=== PATIENT | female | born 1945 | race Caucasian/White ===

== ENCOUNTER 2017-11-27 17:59 | Inpatient (IN) | payer MEDICARE, MEDICAID ==
[~2017-11-27] VITALS: Ht 154.9 cm; Wt 52.2 kg
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
[2017-11-27 18:46] LABS: BASOPHILS # (AUTO) 0.1 /CMM (0.0-0.2); BASOPHILS % (AUTO) 1.2 % (0.0-2.0); EOSINOPHILS % (AUTO) 3.2 % (0.0-6.0); HEMATOCRIT 35 % (33-45); HEMOGLOBIN 11.9 g/dL (11.5-14.8); LYMPHOCYTES # (AUTO) 1.7 /CMM (0.8-4.8); LYMPHOCYTES % (AUTO) 33.7 % (20.0-44.0); MEAN CORPUSCULAR HEMOGLOBIN 30 PG (26.0-33.0); MEAN CORPUSCULAR HGB CONC 34 g/dl (31.0-36.0); MEAN CORPUSCULAR VOLUME 88 fL (82-100); MONOCYTES # (AUTO) 0.5 /CMM (0.1-1.30); MONOCYTES % (AUTO) 10.1 % (2.0-12.0); NEUTROPHILS # (AUTO) 2.7 /CMM (1.8-8.9); NEUTROPHILS % (AUTO) 51.8 % (43.0-81.0); PLATELET COUNT (AUTO) 236 /CMM (150-450); RDW COEFFICIENT OF VARIATION 14.3 (11.5-15.0); RED BLOOD CELL COUNT(AUTO) 4.02 MIL/uL (4.0-5.2); WHITE BLOOD COUNT (AUTO) 5.2 K/uL (4.3-11.0)
[2017-11-27 18:56] LABS: CALCIUM, SERUM 8.9 mg/dL (8.5-10.1); CARBON DIOXIDE 33 mmol/L (21-32); CHLORIDE 100 mmol/L (98-107); CREATININE 0.9 mg/dL (0.6-1.3); GLUCOSE 89 mg/dL (74-106); POTASSIUM 4.3 mmol/L (3.5-5.1); SODIUM SERUM 133 mmol/L (136-145); UREA NITROGEN, BLOOD 13 mg/dL (7-18)
[2017-11-27 19:02] LABS: ALANINE AMINOTRANSFERASE 64 U/L (12-78); ALBUMIN 3.4 g/dL (3.4-5.0); ALCOHOL, BLOOD < 3 mg/dL (0-0); ALKALINE PHOSPHATASE 47 U/L (46-116); ASPARTATE AMINOTRANSFERASE 45 U/L (15-37); BILIRUBIN,DIRECT 0.1 mg/dL (0.0-0.2); BILIRUBIN,TOTAL 0.4 mg/dL (0.2-1.0); TOTAL PROTEIN, SERUM 6.9 g/dL (6.4-8.2)
[2017-11-27 19:14] LABS: ACETAMINOPHEN 0 ug/ml (10-30); SALICYLATE 0.6 mg/dL (2.8-20.0)
--- NOTE | 2017-11-27 19:20 | NUR ---
Report given to RUSSELL Smith for jack.
[2017-11-27 19:30] LABS: APPEARANCE,URINE Slightly Cloudy (CLEAR); BILIRUBIN,URINE SMALL (NEGATIVE); BLOOD, URINE Negative Ery/uL (NEGATIVE); COLOR,URINE Yellow (YELLOW); KETONES,URINE Trace (NEGATIVE); LEUKOCYTE ESTERASE ,URINE Moderate (NEGATIVE); NITRITE, URINE Positive (NEGATIVE); PH,URINE 6.5 (5.0-8.0); PROTEIN,URINE Trace mg/dl (NEGATIVE); UGLUCOSE Negative (NEGATIVE)
[2017-11-27 19:37] LABS: BACTERIA,URINE Many /HPF (None Seen); RBC,URINE 0-2 /HPF (0-2); SQUAMOUS EPITHELIAL CELL,UR Few /HPF (None Seen); WBC,URINE 51-80 /HPF (0-3)
[2017-11-27 19:38] LABS: MUCUS,URINE Few /LPF (None Seen); URINE AMORPHOUS URATE Few /HPF (None Seen)
--- NOTE | 2017-11-27 20:04 | NUR ---
PATIENT ASSIGNED GPS [id number]
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
[2017-11-27] MEDS ORDERED: MAGNESIUM HYDROXIDE 30 ML UDC PO PRN (21:30)
[2017-11-27] MEDS ORDERED: MAG HYDROX/AL HYDROX/SIMETH 30 ML UDC PO PRN (21:30)
[2017-11-27] MEDS ORDERED: DIVA-76 PO (21:38)
[2017-11-27] MEDS ORDERED: [UNRECOGNIZED DRUG - OTHER] (21:38)
[2017-11-27] MEDS ORDERED: PRAV20TA PO (21:38)
[2017-11-27] MEDS ORDERED: DIVA125C5 PO (21:38)
[2017-11-27] MEDS ORDERED: OMEP40CA37 PO (21:38)
[2017-11-27] MEDS ORDERED: FENO134C PO (21:38)
[2017-11-27] MEDS ORDERED: LOSA100T15 PO (21:38)
[2017-11-27] MEDS ORDERED: MELA1TAB25 PO (21:38)
[2017-11-27] MEDS ORDERED: ATOR20TA PO (21:38)
[2017-11-27] MEDS ORDERED: LORAZEPAM 1 MG TABLET PO PRN (22:00)
--- NOTE | 2017-11-27 23:00 | NUR ---
PLACED A CALL TO DR. LYNCH, AND INFORMED HIM REGARDING MED RECON.
[2017-11-28] MEDS: TEMAZEPAM 15 MG CAPSULE PO PRN ×2 (01:26→23:12)
--- NOTE | 2017-11-28 05:46 | NUR ---
PLACED A CALL TO PHARMACY AFTER HOURS REGARDING PENDING MEDICATIONS ORDERS ATORVASTATIN, LOSARTAN, FENOFIBRATE AND OMEPRAZOLE, SPOKE WITH STEVE , PER STEVE THOSE ARE NON FORMULARY ,AND OUR PHARMACY WILL VERIFY IT.
[2017-11-28 06:25] LABS: CREATININE 0.8 mg/dL (0.6-1.3)
[2017-11-28 06:32] LABS: CHOLESTEROL 116 mg/dL (<200); HDL CHOLESTEROL 26 mg/dL (40-60); LDL 67 mg/dL (0-99); TRIGLYCERIDES 115 mg/dL (30-150)
--- NOTE | 2017-11-28 06:39 | NUR ---
PT EATING VANILLA PUDDING AND ASKED FOR ORANGE JUICE AT THIS TIME.
[2017-11-28 08:00] VITALS: BP 125/68
[2017-11-28] MEDS ORDERED: FENOFIBRATE NANOCRYS (145 MG) 145 MG TABLET PO SCH (08:32)
[2017-11-28] MEDS ORDERED: ATORVASTATIN 10 MG TABLET PO SCH ×2 (09:00)
[2017-11-28] MEDS: ATORVASTATIN 10 MG TABLET PO SCH (09:02)
[2017-11-28] MEDS: PANTOPRAZOLE 40 MG TABLET.DR PO SCH (09:02)
[2017-11-28] MEDS: LOSARTAN POTASSIUM 50 MG TABLET PO SCH (09:02)
[2017-11-28] MEDS: FENOFIBRATE NANOCRYS (145 MG) 145 MG TABLET PO SCH (09:09)
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
[2017-11-28 16:00] VITALS: BP 127/58
[2017-11-28 20:00] VITALS: BP 131/61
[2017-11-28] MEDS: RIVASTIGMINE TARTRATE 1.5 MG CAPSULE PO SCH (21:04)
[2017-11-28] MEDS: risperiDONE 0.25 MG TABLET PO SCH (21:04)
[2017-11-29 08:00] VITALS: BP 113/73
[2017-11-29] MEDS: RIVASTIGMINE TARTRATE 1.5 MG CAPSULE PO SCH ×2 (08:07→16:07)
[2017-11-29] MEDS: risperiDONE 0.25 MG TABLET PO SCH ×2 (08:07→16:07)
[2017-11-29] MEDS: FENOFIBRATE NANOCRYS (145 MG) 145 MG TABLET PO SCH (08:07)
[2017-11-29] MEDS: LOSARTAN POTASSIUM 50 MG TABLET PO SCH (08:07)
[2017-11-29] MEDS: PANTOPRAZOLE 40 MG TABLET.DR PO SCH (08:07)
[2017-11-29] MEDS: ATORVASTATIN 10 MG TABLET PO SCH (09:20)
[2017-11-29 16:08] VITALS: BP 102/61
[2017-11-29 20:00] VITALS: BP 128/68
[2017-11-29] MEDS: TEMAZEPAM 15 MG CAPSULE PO PRN (21:58)
[2017-11-30 08:12] VITALS: BP 143/88
[2017-11-30] MEDS: FENOFIBRATE NANOCRYS (145 MG) 145 MG TABLET PO SCH (08:38)
[2017-11-30] MEDS: PANTOPRAZOLE 40 MG TABLET.DR PO SCH (08:38)
[2017-11-30] MEDS: RIVASTIGMINE TARTRATE 1.5 MG CAPSULE PO SCH ×2 (08:38→16:28)
[2017-11-30] MEDS: risperiDONE 0.25 MG TABLET PO SCH ×2 (08:38→16:29)
[2017-11-30] MEDS: LOSARTAN POTASSIUM 50 MG TABLET PO SCH (08:39)
[2017-11-30] MEDS: ATORVASTATIN 10 MG TABLET PO SCH (10:14)
[2017-11-30 16:00] VITALS: BP 150/71
[2017-11-30] MEDS: NITROFURANTOIN/NITROFURAN MAC 100 MG CAPSULE PO SCH (17:51)
--- NOTE | 2017-11-30 19:45 | NUR ---
GPS RN NOTE: RECEIVED PATIENT IN HALLWAY AT NURSE STATION CONFUSED, DISORGANIZED AND DISORIENTED , PT IS REDIRECTABLE AT THIS TIME. NO ACUTE DISTRESS NOTED. DENIES SI, HI. NO C/O PAIN OR DISCOMFORT AT THIS TIME. WILL CONTINUE TO MONITOR Q15MIN ROUNDS FOR SAFETY AND BEHAVIOR.
[2017-11-30 20:00] VITALS: BP 126/57
[2017-11-30] MEDS: TEMAZEPAM 15 MG CAPSULE PO PRN (21:31)
[2017-12-01] MEDS: NITROFURANTOIN/NITROFURAN MAC 100 MG CAPSULE PO SCH ×2 (06:33→17:32)
[2017-12-01 09:08] VITALS: BP 112/52
[2017-12-01] MEDS: LOSARTAN POTASSIUM 50 MG TABLET PO SCH (11:00)
[2017-12-01] MEDS: ATORVASTATIN 10 MG TABLET PO SCH (11:00)
[2017-12-01] MEDS: risperiDONE 0.25 MG TABLET PO SCH ×2 (11:00→17:31)
[2017-12-01] MEDS: RIVASTIGMINE TARTRATE 1.5 MG CAPSULE PO SCH (11:00)
[2017-12-01] MEDS: PANTOPRAZOLE 40 MG TABLET.DR PO SCH (11:00)
[2017-12-01] MEDS: FENOFIBRATE NANOCRYS (145 MG) 145 MG TABLET PO SCH (11:03)
--- NOTE | 2017-12-01 12:50 | NUR ---
RN NOTES V/S TAKEN BP 127/68, P-105, R-19, 02- 97 ROOM AIR, PATIENT'S HAND SHAKING, CALL DR MASON AND GET ORDER STAT EKG, ORDER TAKEN AND CARRIED OUT. DAUGHTER NEXT TO THE BED. CONTINUED MONITORING.
[2017-12-01 13:00] VITALS: BP 127/67
[2017-12-01 13:25] VITALS: BP 122/53
[2017-12-01] MEDS: ACETAMINOPHEN 325 MG TABLET PO PRN (14:25)
--- NOTE | 2017-12-01 14:26 | NUR ---
RN NOTES V/S TAKEN T- 100.0 F ADMINISTERED TYLENOL 650 MG PO PRN , P-98, R-19, O2-94 ROOM AIR, BP- 122/53, ALSO PUT ICE ON GROIN AREA, AND ARMPIT. CONTINUED MONITORING.
[2017-12-01 15:00] VITALS: BP 101/51
--- NOTE | 2017-12-01 15:00 | NUR ---
RN NOTES RETAKEN T-99.O f AT THIS TIME, PATIENT RESTING IN THE BED, CONTINUED MONITORING.
[2017-12-01 16:00] VITALS: BP_SYST 101; BP_SYST 115; BP_DIAS 51; BP_DIAS 68
[2017-12-01 16:19] LABS: EOSINOPHILS % (AUTO) 0.1 % (0.0-6.0); HEMATOCRIT 30 % (33-45); LYMPHOCYTES # (AUTO) 0.1 /CMM (0.8-4.8); LYMPHOCYTES % (AUTO) 1.3 % (20.0-44.0); MEAN CORPUSCULAR HEMOGLOBIN 30 PG (26.0-33.0); MEAN CORPUSCULAR HGB CONC 34 g/dl (31.0-36.0); MEAN CORPUSCULAR VOLUME 91 fL (82-100); MONOCYTES # (AUTO) 0.1 /CMM (0.1-1.30); MONOCYTES % (AUTO) 0.9 % (2.0-12.0); NEUTROPHILS # (AUTO) 10.4 /CMM (1.8-8.9); NEUTROPHILS % (AUTO) 97.7 % (43.0-81.0); PLATELET COUNT (AUTO) 200 /CMM (150-450); RDW COEFFICIENT OF VARIATION 15.8 (11.5-15.0); RED BLOOD CELL COUNT(AUTO) 3.31 MIL/uL (4.0-5.2); WHITE BLOOD COUNT (AUTO) 10.6 K/uL (4.3-11.0)
[2017-12-01 16:36] LABS: ALANINE AMINOTRANSFERASE 64 U/L (12-78); ALBUMIN 2.6 g/dL (3.4-5.0); ALKALINE PHOSPHATASE 31 U/L (46-116); ASPARTATE AMINOTRANSFERASE 47 U/L (15-37); BILIRUBIN,TOTAL 0.4 mg/dL (0.2-1.0); CALCIUM, SERUM 8.7 mg/dL (8.5-10.1); CARBON DIOXIDE 24 mmol/L (21-32); CHLORIDE 101 mmol/L (98-107); CREATININE 1.2 mg/dL (0.6-1.3); GLUCOSE 184 mg/dL (74-106); POTASSIUM 2.9 mmol/L (3.5-5.1); SODIUM SERUM 127 mmol/L (136-145); TOTAL PROTEIN, SERUM 5.5 g/dL (6.4-8.2); UREA NITROGEN, BLOOD 23 mg/dL (7-18)
[2017-12-01] MEDS ORDERED: IV NS 0.9% 1,000 ML IV PRN (17:30)
[2017-12-01] MEDS ORDERED: POTASSIUM CHLORIDE 20 MEQ TAB.PRT.SR PO ONE ×2 (17:30→23:00)
--- NOTE | 2017-12-01 19:45 | NUR ---
DAUGHTER REQUESTS DR. HERNANDEZ CALL HER TOMORROW. LEFT MESSAGE ON BOARD AT NURSE STATION AND WILL ENDORSE TO ONCOMING SHIFT IN MORNING.
--- NOTE | 2017-12-01 19:45 | NUR ---
SPOKE WITH DAUGHTER ON PHONE REGARDING CURRENT STATUS OF PATIENT. REPORTED PATIENT AWAKE ORIENTED X 1 IN BED RECEIVING IV FLUIDS NS CO MD WITHOUT COMPLAINTS AT THIS TIME. NO DISTRESS NOTED. WILL CONTINUE TO MONITOR FOR SAFETY AND COMFORT.
--- NOTE | 2017-12-01 20:30 | NUR ---
UNABLE TO CONTINUE TO INFUSE IV FLUIDS DUE TO SAFETY PER RUG SAMPLE BEVELER. WILL RESUME WHEN SAFE TO DO SO. PT IN TV ROOM EATING SNACKS AND DRINKING FLUIDS. BP WAS 90/75 P 91@1999, RECHECKED NOW BP 142/60 P 116. NOTED TO HAVE EPS FINE TREMORS IN HANDS, WAS MADE AWARE DURING DAY SHIFT, WILL ENDORSE TO ONCOMING SHIFT.
[2017-12-01 21:11] VITALS: BP 142/60
[2017-12-01 21:23] LABS: BAND % (MANUAL) 7 % (0.0-5.0); LYMPHOCYTES % (MANUAL) 2 % (16-48); MONOCYTES % (MANUAL) 2 % (0-11.0); NEUTROPHILS % (MANUAL) 89 (42-76)
--- NOTE | 2017-12-01 22:30 | NUR ---
NS FLUIDS INFUSION RESUMED AT 100 CC/HR, PT. ASLEEP IN BED WITH LINE OF SITE FOR SAFETY. 1:1 NOT AVAILABLE.
[2017-12-02] MEDS: NITROFURANTOIN/NITROFURAN MAC 100 MG CAPSULE PO SCH ×2 (06:17→17:09)
--- NOTE | 2017-12-02 07:10 | NUR ---
gps rn initial notes Received patient in bed, awake, head of bed elevated, no SOB or distress noted, on room air and tolerated well. IV intact and patent with IVF infusing well, endorsed by night shift supervisor RN to d/c when finish. NO complaint of pain or discomfort noted, will continue to monitor accordingly.
[2017-12-02 07:20] LABS: CALCIUM, SERUM 8.4 mg/dL (8.5-10.1); CARBON DIOXIDE 25 mmol/L (21-32); CHLORIDE 110 mmol/L (98-107); GLUCOSE 99 mg/dL (74-106); MAGNESIUM 1.7 mg/dL (1.8-2.4); PHOSPHORUS 2.4 mg/dL (2.5-4.9); POTASSIUM 4.9 mmol/L (3.5-5.1); SODIUM SERUM 139 mmol/L (136-145); UREA NITROGEN, BLOOD 25 mg/dL (7-18)
[2017-12-02 08:00] VITALS: BP 110/54
[2017-12-02] MEDS: LOSARTAN POTASSIUM 50 MG TABLET PO SCH (08:33)
[2017-12-02] MEDS: PANTOPRAZOLE 40 MG TABLET.DR PO SCH (08:35)
[2017-12-02] MEDS: FENOFIBRATE NANOCRYS (145 MG) 145 MG TABLET PO SCH (08:35)
[2017-12-02] MEDS: risperiDONE 0.25 MG TABLET PO SCH ×2 (08:35→17:09)
[2017-12-02] MEDS: ATORVASTATIN 10 MG TABLET PO SCH (08:40)
[2017-12-02 09:00] VITALS: BP 114/58
[2017-12-02] MEDS ORDERED: MAGNESIUM OXIDE 400 MG TABLET PO ONE (10:00)
[2017-12-02] MEDS ORDERED: K PHOS NEUTRAL 250 MG TABLET PO ONE (10:30)
[2017-12-02 16:00] VITALS: BP 112/67
--- NOTE | 2017-12-02 19:10 | NUR ---
RN Notes Received pt in the activity room, watching TV, interacting with other pt. Pt denies any pain and discomfort. Pt is alert and oriented x2 with periods of confusion and forgetfulness, reorient pt as needed. IV access on right forearm out of site, no bleeding noted secured with gauze and tape. Will continue to monitor pt and maintain safety.
--- NOTE | 2017-12-02 19:22 | NUR ---
RUSSELL Notes Patient in the activity room, watching TV, interacting with other patient, talking in farsi continously. No signs and symptoms of distress and discomfort. Alert and oriented x1, confused and disoriented, reorientation given. Will continue to monitor and maintaihn safety. Addendum: 12/02/17 at 2152 by MARSHALL HARDWICK RN wrong entry Addendum: 12/03/17 at 0654 by MARSHALL HARDWICK RN wrong entry
[2017-12-02 19:55] VITALS: BP 112/68
[2017-12-03] MEDS: NITROFURANTOIN/NITROFURAN MAC 100 MG CAPSULE PO SCH ×2 (06:12→17:30)
--- NOTE | 2017-12-03 06:55 | NUR ---
RN Notes Pt slept well overnight, vital signs stable, no complain of pain. Still noted with confusion. Ambulates with supervision, fall precaution observed. No significant change in condition noted. Will endorse to morning RN for continuity of care.
[2017-12-03 08:00] VITALS: BP 117/69
[2017-12-03] MEDS: risperiDONE 0.25 MG TABLET PO SCH ×2 (08:34→16:12)
[2017-12-03] MEDS: FENOFIBRATE NANOCRYS (145 MG) 145 MG TABLET PO SCH (08:35)
[2017-12-03] MEDS: PANTOPRAZOLE 40 MG TABLET.DR PO SCH (08:35)
[2017-12-03] MEDS: ATORVASTATIN 10 MG TABLET PO SCH (08:35)
[2017-12-03] MEDS: LOSARTAN POTASSIUM 50 MG TABLET PO SCH (08:36)
--- NOTE | 2017-12-03 09:26 | NUR ---
JESSY faxed SNF referral to Tran admission coordinator at [facility] Address: [address], [place] [address] for review.
--- NOTE | 2017-12-03 12:44 | NUR ---
Tran admission coordinator from [facility] Address: [address] [place] [address] came to assess pt and stated to SW that pt has been accepted to their facility.
[2017-12-03 16:39] VITALS: BP 107/73
--- NOTE | 2017-12-03 19:43 | NUR ---
RN NOTES PT AWAKE AND VISITING WITH FAMILY. NO APPARENT S/S OF DISTRESS AT THIS TIME. WILL CONTINUE TO MONITOR.
[2017-12-03 20:20] VITALS: BP 122/48
[2017-12-03] MEDS: risperiDONE 1 MG TABLET PO SCH (22:00)
[2017-12-03] MEDS: TEMAZEPAM 15 MG CAPSULE PO PRN (23:39)
--- NOTE | 2017-12-03 23:40 | NUR ---
RN NOTES PT REQUESTED PRN SLEEP MEDICATION. ADMINISTERED AND WILL CONTINUE TO MONITOR.
[2017-12-04] MEDS: NITROFURANTOIN/NITROFURAN MAC 100 MG CAPSULE PO SCH ×2 (06:15→18:26)
[2017-12-04 08:00] VITALS: BP 100/68
[2017-12-04] MEDS: FENOFIBRATE NANOCRYS (145 MG) 145 MG TABLET PO SCH (09:17)
[2017-12-04] MEDS: PANTOPRAZOLE 40 MG TABLET.DR PO SCH (09:17)
[2017-12-04] MEDS: risperiDONE 0.25 MG TABLET PO SCH (09:17)
[2017-12-04] MEDS: ATORVASTATIN 10 MG TABLET PO SCH (09:17)
[2017-12-04] MEDS: LOSARTAN POTASSIUM 50 MG TABLET PO SCH (09:17)
--- NOTE | 2017-12-04 15:02 | NUR ---
pts daughter Estelle Wei [phone] contacted SW to inquire on discharge. SW informed pts daughter that pt will be discharging on Saturday12/06/17 to [facility] Address: [address] [place] [address] . Pts daughter stated that SNF was too far from her home and wanted pt discharged to a nearby SNF. SW explained that pts MD has requested for pt to be discharged to one of his facilities to continue his treatment. Pts daughter requested that SW refer pt to SNF's in the [facility]. SW provided pts daughter with the names of 3 SNF's that are in the [facility] that special in Dementia care; [facility], [facility], and [facility] for possible referrals. Pts daughter stated that she would go see facilities and call SW to inform her which one she likes.
[2017-12-04 16:00] VITALS: BP 115/81
--- NOTE | 2017-12-04 19:20 | NUR ---
GPS RN OPENING NOTE: RECEIVED PT AND IS IN ACTIVITY ROOM READING A MAGAZINE. NO SOB NOTED. NO S/S OF DISTRESS. NO COMPLAINTS OF PAIN. PT ON ROOM AIR AND SP02 97%. PT IS TURKISH SPEAKING AND UNDERSTANDING ONLY. PT IS A/OX2-3. PT DENIES SUICIDE IDEATIONS OR HOMICIDAL IDEATIONS AT THIS TIME. PT HAS NO NEEDS AT THIS TIME. EDUCATED PT TO USE CALL BEL. BED KEPT IN LOW, LOCKED POSITION, AND SIDE RAILS X 2UP. WILL CONTINUE TO MONITOR PT.
[2017-12-04 20:00] VITALS: BP 102/60
[2017-12-04 20:06] VITALS: BP 122/48
[2017-12-04] MEDS: risperiDONE 1 MG TABLET PO SCH (21:59)
[2017-12-05] MEDS: NITROFURANTOIN/NITROFURAN MAC 100 MG CAPSULE PO SCH ×2 (06:18→17:01)
--- NOTE | 2017-12-05 06:29 | NUR ---
GPS RN CLOSING NOTE: ALL NEEDS WERE ATTENDED AND ANTICIPATED FOR. PT RESTING IN BED COMFORTABLY. NO SOB NOTED. NO S/S OF DISTRESS. CALL LAO WITHIN PT'S REACH. BED KEPT IN LOW, LOCKED POSITION, AND SIDE RAILS X 2UP. PT REORIENT PRN. WILL ENDORSE TO AM NURSE FOR CALLIE.
[2017-12-05] MEDS: ACETAMINOPHEN 325 MG TABLET PO PRN (06:40)
--- NOTE | 2017-12-05 06:45 | NUR ---
GPS RN NOTE: PT COMPLAINING OF BILATERAL FEET PAIN AND REQUESTING FOR PAIN MEDICATION. PT WAS ADMINISTERED TYLENOL 650MG PO. WILL CONTINUE TO MONITOR PT.
--- NOTE | 2017-12-05 08:00 | NUR ---
GPS RN AM NOTES: RECEIVED PT SLEEPING BUT AROUSABLE.NO SOB NOTED. NO S/S OF DISTRESS. NO COMPLAINTS OF PAIN. PT ON ROOM AIR AND SP02 97%. PT IS INDONESIAN SPEAKING AND UNDERSTANDING ONLY. PT IS A/OX2-3. PT DENIES SUICIDE IDEATIONS OR HOMICIDAL IDEATIONS AT THIS TIME. PT HAS NO NEEDS AT THIS TIME. EDUCATED PT TO USE CALL LAO. BED KEPT IN LOW, LOCKED POSITION, AND SIDE RAILS X 2UP. WILL CONTINUE TO MONITOR PT.
[2017-12-05 08:20] VITALS: BP 106/68
--- NOTE | 2017-12-05 08:24 | NUR ---
Pts daughter Estelle Wei [phone] left JESSY a voicemail stating that she wants pt referred to [facility] Address:[address] [place] [address] . JESSY faxed referral to Yessi communication center coordinator at [facility]. for review.
[2017-12-05] MEDS: LOSARTAN POTASSIUM 50 MG TABLET PO SCH (09:00)
[2017-12-05] MEDS: FENOFIBRATE NANOCRYS (145 MG) 145 MG TABLET PO SCH (09:13)
[2017-12-05] MEDS: risperiDONE 0.25 MG TABLET PO SCH (09:14)
[2017-12-05] MEDS: PANTOPRAZOLE 40 MG TABLET.DR PO SCH (09:14)
[2017-12-05] MEDS: ATORVASTATIN 10 MG TABLET PO SCH (09:14)
--- NOTE | 2017-12-05 10:17 | NUR ---
SW received a call from [place] surgical coordinator at [facility] Address:[address] [place] [address] stating pt has been approved for admissions to their facility.
--- NOTE | 2017-12-05 13:30 | NUR ---
PT WAS C/O LEFT GROIN PAIN BUT SOON TYLENOL IS ABOUT TO BE ADMINISTERED,PT IS COMFORTABLY SLEEPING WITH NO GRIMACING NOTED.
[2017-12-05 16:24] VITALS: BP 104/58
[2017-12-05 20:00] VITALS: BP_SYST 100; BP_SYST 108; BP_DIAS 61; BP_DIAS 64
[2017-12-05] MEDS: risperiDONE 1 MG TABLET PO SCH (21:44)
[2017-12-06] MEDS: NITROFURANTOIN/NITROFURAN MAC 100 MG CAPSULE PO SCH (06:04)
[2017-12-06 08:00] VITALS: BP 99/69
[2017-12-06 09:00] VITALS: BP 99/69
[2017-12-06] MEDS: LOSARTAN POTASSIUM 50 MG TABLET PO SCH (09:00)
[2017-12-06] MEDS: FENOFIBRATE NANOCRYS (145 MG) 145 MG TABLET PO SCH (09:25)
[2017-12-06] MEDS: PANTOPRAZOLE 40 MG TABLET.DR PO SCH (09:25)
[2017-12-06] MEDS: risperiDONE 0.25 MG TABLET PO SCH (09:25)
[2017-12-06] MEDS: ATORVASTATIN 10 MG TABLET PO SCH (09:25)
--- NOTE | 2017-12-06 10:58 | NUR ---
DR. HERNANDEZ GAVE AN ORDER TO D/C HOLD AND D/C TO [facility] AND TO FOLLOW UP WITH PSYCH AND MEDICAL DOCTORS.
--- NOTE | 2017-12-06 13:56 | NUR ---
DISCHARGE NOTE: Pt was discharged at 1:30pm to [facility] ([facility]) [address] [place] [address]. [place] [address] P: [phone] via [facility] ambulance trip #[id number]. Pts daughter Estelle [phone] has been notified and agrees with discharge plan. Pts mood was happy with congruent affect and denied visual/auditory hallucinations and denied homicidal/homicidal ideations. Pt will be under the medical care of [employer]: Dr Aburto Address: [address] [place] [address] [address] [address] [phone] and Psychiatrist: Dr. Kathe Sharp [address] [place] [address] [address], [place] [address] [phone]. The multidisciplinary exitcare form was done, printed, signed, and given to the patient.
--- NOTE | 2017-12-06 15:06 | NUR ---
GPS/RN PT D/C TO [facility] ([facility]) [address] [facility] [place] [address] P: [phone] WITH REPORT GIVEN TO RAQUEL SILVER . NO SI OR HI NOTED AT THE TIME OF D/C . PT IS AMBULATORY VSS MEDICATION/BELONGINGS RETURNED MEDS RECON. ALONG WITH THE H/P PROVIDED IN THE D/C PACKED FOR ADMITTING FACILITY. PT LEFT VIA AMBULANCE
== END 2017-12-06 13:45 | DRG 885 ==
LOC: ER 18:02 → GPS 20:37
PROVIDERS: ADMIT Psychiatry & Neurology Psychiatry; ATTEND Internal Medicine
DX: F23 Brief psychotic disorder (principal); N17.0 Acute kidney failure with tubular necrosis; E87.1 Hypo-osmolality and hyponatremia; N39.0 Urinary tract infection, site not specified; F32.9 Major depressive disorder, single episode, unspecified; I10 Essential (primary) hypertension; F41.9 Anxiety disorder, unspecified; E78.5 Hyperlipidemia, unspecified; F03.90 Unspecified dementia, unspecified severity, without behavioral disturbance, psychotic disturbance, mood disturbance, and anxiety; Z87.891 Personal history of nicotine dependence; F09 Unspecified mental disorder due to known physiological condition; E87.6 Hypokalemia; B96.89 Other specified bacterial agents as the cause of diseases classified elsewhere
CPT/HCPCS: 36415; 80048-TC; 80053-TC; 80061-TC; 80076-TC; 80305; 81000-TC; 82565-TC; 82962-TC; 83735-TC; 84100-TC; 85025-TC; 87081-TC; 87086-TC; 87186-TC; A4606; G0480; J7030; Z7610